=== PATIENT | female | born 1950 | race Caucasian/White ===

== ENCOUNTER 2022-01-03 06:30 | Outpatient (CLI) | payer OTHER ==
[~2022-01-03] VITALS: Ht 167.6 cm; Wt 74.8 kg
[~2022-01-03 06:30] MED LIST: ALBU108A14 IN; BACL20TA PO; BIMA0.01 EACHEYE; CHOL20009 PO; DIPH25CA66 PO; EPIN0.3I24 IJ; ESTR0.3T PO; FIBETAB PO; FLUT500M2 IN; GABA400C PO; LISI-283 PO; MONT10TA23 PO; MULT-1018 OR; OMEP20TA PO; SIMV-13 PO; SOLI5SUS PO; [UNRECOGNIZED DRUG - CODE] PO
[2022-01-03] MEDS ORDERED: VANCOMYCIN HCL 1000 MG VL ONE (06:32)
[2022-01-03] MEDS ORDERED: BUPIVACAINE 0.25% INJ 50ML VIAL ONE (06:33)
[2022-01-03] MEDS ORDERED: EPINEPHrine HCL 1 MG/1 ML AMP ONE (06:33)
[2022-01-03] MEDS ORDERED: THROMBIN (BOVINE) 5000 UNIT SOL VIAL ONE (06:34)
[2022-01-03] MEDS ORDERED: MINERAL OIL TOPICAL 10ml TOP ONE (06:34)
[2022-01-03] MEDS ORDERED: IPRATROPIUM BROM 0.5 MG/2.5ML INH SOL NEB ONE (07:15)
[2022-01-03] MEDS ORDERED: ALBUTEROL SULF 2.5 MG/0.5ML(0.5%) NEB SOLN NEB ONE (07:15)
== END 2022-01-03 07:12 | disposition home or self-care (01) ==
LOC: LAB 06:30 → EDSTATUS 07:00 → LAB 07:12
PROVIDERS: ATTEND Orthopaedic Surgery
DX: M48.062 Spinal stenosis, lumbar region with neurogenic claudication (principal); F17.200 Nicotine dependence, unspecified, uncomplicated; Z20.822 Contact with and (suspected) exposure to COVID-19
CPT/HCPCS: 86850; 86900; 86901; J0171; J3370; J7040; U0003; J3490

== ENCOUNTER 2022-02-28 06:08 | Inpatient (IN) | payer OTHER ==
[~2022-02-28] VITALS: Ht 167.6 cm; Wt 84.0 kg
[2022-02-28] MEDS ORDERED: ceFAZolin 1GM/50ML 100 ML IV ONE (06:25)
[2022-02-28] MEDS ORDERED: BUPIVACAINE W/ EPINEPH 0.5% INJ 50ML MDV IJ ONE (06:32)
[2022-02-28] MEDS ORDERED: VANCOMYCIN HCL 1000 MG VL ONE ×2 (06:33→11:58)
[2022-02-28] MEDS ORDERED: THROMBIN (BOVINE) 5000 UNIT SOL VIAL ONE (06:37)
[2022-02-28] MEDS ORDERED: FAMOTIDINE (10MG/ML) 2ML VL IV ONE (07:30)
[2022-02-28] MEDS ORDERED: TRANEXAMIC ACID 20 ML ONE (07:30)
[2022-02-28] MEDS ORDERED: ROCURONIUM 10MG/ML 10ML VIAL IV ONE (07:40)
[2022-02-28] MEDS ORDERED: SUCCINYLCHOLINE CHLORIDE 20 MG/ML 10ML VIAL IV ONE (07:40)
[2022-02-28] MEDS ORDERED: HYDROmorphone HCL 2 MG/ML VL/or syr ONE (07:42)
[2022-02-28] MEDS ORDERED: KETAMINE HCL 10 ML ONE (07:42)
[2022-02-28] MEDS ORDERED: fentaNYL CITRATE 10 ML ONE (07:42)
[2022-02-28] MEDS ORDERED: ONDANSETRON HCL 4 MG/2 ML VIAL ONE (07:43)
[2022-02-28] MEDS ORDERED: GLYCOPYRROLATE 0.2 MG/ML 1ML VIAL ONE (07:43)
[2022-02-28] MEDS ORDERED: HYDROCORTISONE SOD SUCC 100 MG/2ML INJ VIAL ONE (07:43)
[2022-02-28] MEDS ORDERED: DexAMETHasone SOD PHOS 10MG/1ML VIAL INJ ONE (07:43)
[2022-02-28] MEDS ORDERED: PROPOFOL 10 MG/ML 20 ML IV ONE (07:43)
[2022-02-28] MEDS ORDERED: PHENYLEPHRINE HCL 10 MG/ML VL ONE (07:43)
[2022-02-28] MEDS ORDERED: MIDAZOLAM HCL 2MG/2ML 2ml VIAL (1mg/ml) ONE (07:43)
[2022-02-28] MEDS ORDERED: SUGAMMADEX 200mg/2ml Vial (100MG/ML) IV ONE (11:26)
[2022-02-28] MEDS ORDERED: MEPERIDINE HCL (25 MG/ML) 1ML VIAL ONE (12:51)
[2022-02-28] MEDS ORDERED: MORPHINE SULFATE INJ 2 MG/ml SYRG IV PRN (13:00)
[2022-02-28] MEDS: LACTATED RINGER'S 1,000 ML IV SCH ×2 (13:00→23:00)
[2022-02-28] MEDS ORDERED: NITROGLYCERIN 0.4 MG SL TAB SL PRN (13:00)
[2022-02-28] MEDS ORDERED: ALBUTEROL SULF HFA 90MCG INH 200DOSE IN SCH (13:15)
[2022-02-28] MEDS ORDERED: ONDANSETRON HCL 4 MG/2 ML VIAL IV PRN (13:15)
[2022-02-28] MEDS ORDERED: HYDROmorphone HCL 2 MG/ML VL/or syr IV PRN (13:15)
[2022-02-28] MEDS ORDERED: ceFAZolin 1GM/50ML 50 ML IV SCH (14:00)
[2022-02-28] MEDS ORDERED: ALBUTEROL SULF 2.5 MG/0.5ML(0.5%) NEB SOLN NEB PRN (14:45)
[2022-02-28 16:58] VITALS: BP 136/67
[2022-02-28 17:08] VITALS: BP 136/67
[2022-02-28] MEDS: ceFAZolin 1GM/50ML 50 ML IV SCH (17:44)
[2022-02-28] MEDS: HYDROCORTISONE SOD SUCC 100 MG/2ML INJ VIAL IV SCH ×2 (19:09→22:17)
[2022-02-28] MEDS: oxyCODONE HCL 5MG TAB PO PRN (19:49)
[2022-02-28 20:00] VITALS: BP 136/67
[2022-02-28 21:02] VITALS: BP 136/67
[2022-02-28] MEDS: SENNA 8.6 MG TAB PO SCH (22:17)
[2022-02-28] MEDS: DOCUSATE SOD 100 MG CAP PO SCH (22:17)
[2022-03-01] MEDS ORDERED: LISINOPRIL 20 MG TAB PO ONE
[2022-03-01] MEDS ORDERED: METOPROLOL TARTRATE 25 MG TAB PO ONE
[2022-03-01] MEDS: ceFAZolin 1GM/50ML 50 ML IV SCH ×2 (01:38→09:30)
[2022-03-01] MEDS: oxyCODONE HCL 5MG TAB PO PRN ×2 (02:30→20:42)
[2022-03-01 05:00] VITALS: BP 155/68
[2022-03-01 05:36] LABS: Basophils # (auto) 0 10 ^3/uL (0-0.2); Eosinophils # (auto) 0 10 ^3/uL (0-0.8); Hematocrit 32.2 % (36.0-46.0); Hemoglobin 10.9 g/dL (12.2-16.2); Lymphocytes # (auto) 0.7 10 ^3/uL (0.4-5.4); Lymphocytes % (auto) 8.5 % (10.0-50.0); Mean Corpuscular Hemoglobin 29.3 pg (28.0-32.0); Mean Corpuscular Hgb Conc. 33.7 g/dL (32.0-36.0); Monocytes # (auto) 0.3 10 ^3/uL (0-1.3); Monocytes % (auto) 3.9 % (0.0-12.0); Neutrophils # (auto) 6.7 10 ^3/uL (1.6-8.6); Neutrophils % (auto) 87.6 % (37.0-80.0); Red Cell Distribution Width 13.5 % (11.8-14.3); White Blood Cell 7.7 10^3/uL (4.4-10.8)
[2022-03-01] MEDS: HYDROCORTISONE SOD SUCC 100 MG/2ML INJ VIAL IV SCH (07:07)
[2022-03-01 09:00] VITALS: BP 142/57
[2022-03-01] MEDS: POLYETHYLENE GLYCOL 17 GM PWDR PO SCH (10:48)
[2022-03-01] MEDS: DOCUSATE SOD 100 MG CAP PO SCH ×2 (10:48→22:50)
[2022-03-01] MEDS: SENNA 8.6 MG TAB PO SCH ×2 (10:48→22:50)
[2022-03-01] MEDS: LISINOPRIL 20 MG TAB PO SCH (10:57)
[2022-03-01] MEDS: METOPROLOL TARTRATE 25 MG TAB PO SCH ×2 (10:58→22:00)
[2022-03-01] MEDS: HYDROmorphone HCL 2 MG/ML VL/or syr IV PRN (11:13)
[2022-03-01] MEDS ORDERED: ceFAZolin 1GM/50ML 50 ML IV SCH (11:15)
[2022-03-01 13:00] VITALS: BP 127/62
[2022-03-01 17:11] VITALS: BP 118/45
[2022-03-01] MEDS: LACTATED RINGER'S 1,000 ML IV SCH ×2 (17:24→19:00)
[2022-03-01] MEDS ORDERED: OMEPRAZOLE 20MG/10ML ORAL SUSP PO SCH (22:00)
[2022-03-01] MEDS: OXYCODONE W/ ACETAMINOPHEN 5/325MG TABLET PO PRN (22:59)
[2022-03-02] MEDS: ONDANSETRON HCL 4 MG/2 ML VIAL IV PRN ×2 (01:40→09:37)
[2022-03-02] MEDS: oxyCODONE HCL 5MG TAB PO PRN ×3 (03:32→15:59)
[2022-03-02] MEDS: LACTATED RINGER'S 1,000 ML IV SCH ×3 (04:45→22:22)
[2022-03-02 05:00] VITALS: BP 137/57
[2022-03-02 06:31] LABS: Basophils # (auto) 0 10 ^3/uL (0-0.2); Basophils % (auto) 0.3 % (0.0-2.0); Eosinophils # (auto) 0 10 ^3/uL (0-0.8); Eosinophils % (auto) 0.2 % (0.0-7.0); Hematocrit 28.4 % (36.0-46.0); Hemoglobin 9.7 g/dL (12.2-16.2); Lymphocytes # (auto) 2.3 10 ^3/uL (0.4-5.4); Lymphocytes % (auto) 31.9 % (10.0-50.0); Mean Corpuscular Hemoglobin 29.6 pg (28.0-32.0); Mean Corpuscular Hgb Conc. 34.2 g/dL (32.0-36.0); Mean Corpuscular Volume 86.6 fL (80.0-100.0); Monocytes # (auto) 0.8 10 ^3/uL (0-1.3); Monocytes % (auto) 11.8 % (0.0-12.0); Neutrophils % (auto) 55.8 % (37.0-80.0); Red Blood Cells 3.28 10^6/uL (4.0-5.20); Red Cell Distribution Width 13.1 % (11.8-14.3); White Blood Cell 7.2 10^3/uL (4.4-10.8)
[2022-03-02] MEDS: OXYCODONE W/ ACETAMINOPHEN 5/325MG TABLET PO PRN (07:49)
[2022-03-02 08:00] VITALS: BP 133/64
[2022-03-02 09:00] VITALS: BP 160/61
[2022-03-02] MEDS: DOCUSATE SOD 100 MG CAP PO SCH ×2 (09:50→21:41)
[2022-03-02] MEDS: METOPROLOL TARTRATE 25 MG TAB PO SCH ×3 (09:51→22:23)
[2022-03-02] MEDS: SENNA 8.6 MG TAB PO SCH ×2 (09:51→21:43)
[2022-03-02] MEDS: POLYETHYLENE GLYCOL 17 GM PWDR PO SCH (09:51)
[2022-03-02] MEDS: LISINOPRIL 20 MG TAB PO SCH (09:52)
[2022-03-02] MEDS ORDERED: OMEPRAZOLE 20MG/10ML ORAL SUSP PO SCH (10:00)
[2022-03-02] MEDS ORDERED: ENOXAPARIN SOD 30 MG/0.3 ML SYRINGE SC ONE (11:45)
[2022-03-02 13:00] VITALS: BP 150/74
[2022-03-02] MEDS ORDERED: DIPH25CA66 PO (15:49)
[2022-03-02] MEDS ORDERED: OMEP20TA PO (15:49)
[2022-03-02] MEDS ORDERED: GABA100C9 PO (15:49)
[2022-03-02] MEDS ORDERED: ESTR0.3T PO (15:49)
[2022-03-02] MEDS ORDERED: MONT5CHW23 PO (15:49)
[2022-03-02] MEDS ORDERED: SIMV-13 PO (15:49)
[2022-03-02] MEDS ORDERED: BACL10TA PO (15:49)
[2022-03-02] MEDS ORDERED: LISI-285 PO (15:49)
[2022-03-02] MEDS ORDERED: SOLI5SUS PO (15:49)
[2022-03-02 17:00] VITALS: BP_SYST 103; BP_SYST 146; BP_DIAS 54; BP_DIAS 67
[2022-03-02] MEDS: PANTOPRAZOLE 40 MG TAB PO SCH (17:30)
[2022-03-02] MEDS: BACLOFEN 10 MG TAB PO SCH (21:41)
[2022-03-02 22:00] VITALS: BP 166/68
[2022-03-03 05:00] VITALS: BP_SYST 125; BP_SYST 145; BP_DIAS 56; BP_DIAS 66
[2022-03-03] MEDS: OXYCODONE W/ ACETAMINOPHEN 5/325MG TABLET PO PRN (05:32)
[2022-03-03 06:17] LABS: Basophils # (auto) 0 10 ^3/uL (0-0.2); Basophils % (auto) 0.4 % (0.0-2.0); Eosinophils # (auto) 0 10 ^3/uL (0-0.8); Eosinophils % (auto) 0.7 % (0.0-7.0); Hematocrit 30.1 % (36.0-46.0); Hemoglobin 10.3 g/dL (12.2-16.2); Lymphocytes # (auto) 2.3 10 ^3/uL (0.4-5.4); Lymphocytes % (auto) 36.5 % (10.0-50.0); Mean Corpuscular Hemoglobin 29.9 pg (28.0-32.0); Mean Corpuscular Hgb Conc. 34.4 g/dL (32.0-36.0); Mean Corpuscular Volume 87.1 fL (80.0-100.0); Monocytes # (auto) 0.7 10 ^3/uL (0-1.3); Monocytes % (auto) 12.1 % (0.0-12.0); Neutrophils # (auto) 3.1 10 ^3/uL (1.6-8.6); Neutrophils % (auto) 50.3 % (37.0-80.0); Nucleated Red Blood Cells % 0.1 %; Red Blood Cells 3.46 10^6/uL (4.0-5.20); Red Cell Distribution Width 13.3 % (11.8-14.3); White Blood Cell 6.2 10^3/uL (4.4-10.8)
[2022-03-03 09:00] VITALS: BP 127/49
[2022-03-03] MEDS: METOPROLOL TARTRATE 25 MG TAB PO SCH ×2 (09:59→21:31)
[2022-03-03] MEDS: DOCUSATE SOD 100 MG CAP PO SCH ×2 (09:59→21:31)
[2022-03-03] MEDS: SENNA 8.6 MG TAB PO SCH ×2 (10:00→21:30)
[2022-03-03] MEDS: LISINOPRIL 20 MG TAB PO SCH (10:00)
[2022-03-03] MEDS: PANTOPRAZOLE 40 MG TAB PO SCH (10:00)
[2022-03-03] MEDS: LACTATED RINGER'S 1,000 ML IV SCH ×2 (10:00→19:43)
[2022-03-03] MEDS: POLYETHYLENE GLYCOL 17 GM PWDR PO SCH (10:00)
[2022-03-03 10:39] LABS: Albumin 2.6 g/dL (3.4-5.0); Potassium 3.4 mmol/L (3.5-5.1)
[2022-03-03 10:42] LABS: BUN/Creatinine Ratio 19.6; Bilirubin, Total 0.5 mg/dL (0.2-1.0); Total Protein 5.1 g/dL (6.4-8.2)
[2022-03-03] MEDS ORDERED: hydrALAZINE HCL 20 MG/ML VL IV PRN (11:45)
[2022-03-03] MEDS ORDERED: ceFAZolin 1GM/50ML 100 ML IV ONE (11:50)
[2022-03-03 12:04] LABS: INR 0.96 (0.9-1.15)
[2022-03-03] MEDS ORDERED: fentaNYL CITRATE 100 MCG/2 ML VL ONE ×2 (12:23→13:48)
[2022-03-03] MEDS ORDERED: ROCURONIUM 10MG/ML 10ML VIAL IV ONE (12:24)
[2022-03-03] MEDS ORDERED: MIDAZOLAM HCL 2MG/2ML 2ml VIAL (1mg/ml) ONE (12:24)
[2022-03-03] MEDS ORDERED: ONDANSETRON HCL 4 MG/2 ML VIAL ONE (12:25)
[2022-03-03] MEDS ORDERED: LIDOCAINE 2% (LOCAL ANESTH.) PF 5ml SDV ONE (12:25)
[2022-03-03] MEDS ORDERED: PROPOFOL 10 MG/ML 20 ML IV ONE (12:26)
[2022-03-03] MEDS ORDERED: HYDROmorphone HCL 2 MG/ML VL/or syr IV PRN ×2 (14:15)
[2022-03-03] MEDS ORDERED: ONDANSETRON HCL 4 MG/2 ML VIAL IV PRN (14:15)
[2022-03-03] MEDS ORDERED: NEOSTIGMINE 1 MG/ML INJ (10mg/10ML VIAL) ONE (14:34)
[2022-03-03] MEDS ORDERED: GLYCOPYRROLATE 0.2 MG/ML 1ML VIAL ONE (14:34)
[2022-03-03] MEDS ORDERED: ePHEDrine SULFATE 50 MG/ML AMP ONE (14:45)
[2022-03-03 17:00] VITALS: BP 143/62
[2022-03-03] MEDS: HYDROmorphone HCL 2 MG/ML VL/or syr IV PRN ×2 (17:22→21:32)
[2022-03-03] MEDS: ceFAZolin 1GM/50ML 50 ML IV SCH (21:29)
[2022-03-03] MEDS: BACLOFEN 10 MG TAB PO SCH (21:31)
[2022-03-03 21:43] VITALS: BP 133/15
[2022-03-03] MEDS: oxyCODONE HCL 5MG TAB PO PRN (22:54)
[2022-03-04] MEDS: HYDROmorphone HCL 2 MG/ML VL/or syr IV PRN ×2 (02:14→13:22)
[2022-03-04] MEDS: OXYCODONE W/ ACETAMINOPHEN 5/325MG TABLET PO PRN (03:19)
[2022-03-04 05:00] VITALS: BP 124/62
[2022-03-04] MEDS: oxyCODONE HCL 5MG TAB PO PRN ×3 (05:04→15:03)
[2022-03-04] MEDS: ceFAZolin 1GM/50ML 50 ML IV SCH ×2 (05:05→15:03)
[2022-03-04 05:32] LABS: Basophils # (auto) 0 10 ^3/uL (0-0.2); Basophils % (auto) 0.4 % (0.0-2.0); Eosinophils # (auto) 0.1 10 ^3/uL (0-0.8); Eosinophils % (auto) 1.1 % (0.0-7.0); Hematocrit 30.5 % (36.0-46.0); Hemoglobin 10.3 g/dL (12.2-16.2); Lymphocytes # (auto) 2.3 10 ^3/uL (0.4-5.4); Lymphocytes % (auto) 29.4 % (10.0-50.0); Mean Corpuscular Hemoglobin 29.7 pg (28.0-32.0); Mean Corpuscular Hgb Conc. 33.9 g/dL (32.0-36.0); Mean Corpuscular Volume 87.5 fL (80.0-100.0); Monocytes # (auto) 0.9 10 ^3/uL (0-1.3); Monocytes % (auto) 11.1 % (0.0-12.0); Neutrophils # (auto) 4.5 10 ^3/uL (1.6-8.6); Nucleated Red Blood Cells % 0.1 %; Red Blood Cells 3.48 10^6/uL (4.0-5.20); Red Cell Distribution Width 12.9 % (11.8-14.3); White Blood Cell 7.8 10^3/uL (4.4-10.8)
[2022-03-04 05:52] LABS: Potassium 3.3 mmol/L (3.5-5.1)
[2022-03-04 05:56] LABS: BUN/Creatinine Ratio 23.4; Calcium 7.9 mg/dL (8.5-10.1)
[2022-03-04] MEDS: LACTATED RINGER'S 1,000 ML IV SCH ×2 (06:26→17:00)
[2022-03-04 09:00] VITALS: BP 141/61
[2022-03-04] MEDS: POLYETHYLENE GLYCOL 17 GM PWDR PO SCH (10:02)
[2022-03-04] MEDS: LISINOPRIL 20 MG TAB PO SCH (10:02)
[2022-03-04] MEDS: SENNA 8.6 MG TAB PO SCH ×2 (10:02→23:13)
[2022-03-04] MEDS: DOCUSATE SOD 100 MG CAP PO SCH ×2 (10:03→23:11)
[2022-03-04] MEDS: METOPROLOL TARTRATE 25 MG TAB PO SCH ×2 (10:03→23:12)
[2022-03-04] MEDS: PANTOPRAZOLE 40 MG TAB PO SCH (10:03)
[2022-03-04 13:00] VITALS: BP 134/56
[2022-03-04 17:00] VITALS: BP 125/58
[2022-03-04 22:00] VITALS: BP 100/50
[2022-03-04] MEDS: BACLOFEN 10 MG TAB PO SCH (23:11)
[2022-03-05] MEDS: ONDANSETRON HCL 4 MG/2 ML VIAL IV PRN (00:45)
[2022-03-05 05:00] VITALS: BP 139/65
[2022-03-05 08:00] VITALS: BP 155/53
[2022-03-05] MEDS: POLYETHYLENE GLYCOL 17 GM PWDR PO SCH (09:45)
[2022-03-05] MEDS: SENNA 8.6 MG TAB PO SCH ×2 (09:45→22:00)
[2022-03-05] MEDS: DOCUSATE SOD 100 MG CAP PO SCH ×2 (09:45→22:00)
[2022-03-05] MEDS: PANTOPRAZOLE 40 MG TAB PO SCH (09:46)
[2022-03-05] MEDS: LISINOPRIL 20 MG TAB PO SCH (09:47)
[2022-03-05] MEDS: METOPROLOL TARTRATE 25 MG TAB PO SCH ×2 (09:47→22:45)
[2022-03-05 12:00] VITALS: BP 145/58
[2022-03-05 16:00] VITALS: BP 114/64
[2022-03-05 22:00] VITALS: BP 133/53
[2022-03-05] MEDS: POTASSIUM CHL 20 Meq TABLET PO SCH (22:44)
[2022-03-05] MEDS: BACLOFEN 10 MG TAB PO SCH (22:45)
[2022-03-05] MEDS: OXYCODONE W/ ACETAMINOPHEN 5/325MG TABLET PO PRN (23:12)
[2022-03-06 05:00] VITALS: BP 141/51
[2022-03-06 05:27] LABS: Basophils # (auto) 0 10 ^3/uL (0-0.2); Basophils % (auto) 0.5 % (0.0-2.0); Eosinophils # (auto) 0.2 10 ^3/uL (0-0.8); Eosinophils % (auto) 3.3 % (0.0-7.0); Hematocrit 28.3 % (36.0-46.0); Hemoglobin 9.6 g/dL (12.2-16.2); Lymphocytes # (auto) 2.6 10 ^3/uL (0.4-5.4); Lymphocytes % (auto) 42.3 % (10.0-50.0); Mean Corpuscular Hemoglobin 29.4 pg (28.0-32.0); Mean Corpuscular Hgb Conc. 33.9 g/dL (32.0-36.0); Mean Corpuscular Volume 86.6 fL (80.0-100.0); Monocytes # (auto) 0.8 10 ^3/uL (0-1.3); Monocytes % (auto) 13.5 % (0.0-12.0); Neutrophils # (auto) 2.5 10 ^3/uL (1.6-8.6); Neutrophils % (auto) 40.4 % (37.0-80.0); Nucleated Red Blood Cells % 0.1 %; Red Blood Cells 3.26 10^6/uL (4.0-5.20); Red Cell Distribution Width 12.7 % (11.8-14.3); White Blood Cell 6.1 10^3/uL (4.4-10.8)
[2022-03-06 05:42] LABS: Potassium 4.3 mmol/L (3.5-5.1)
[2022-03-06 05:44] LABS: BUN/Creatinine Ratio 20.3
[2022-03-06 08:00] VITALS: BP 118/44
[2022-03-06] MEDS: POTASSIUM CHL 20 Meq TABLET PO SCH ×2 (10:00→22:00)
[2022-03-06] MEDS: LISINOPRIL 20 MG TAB PO SCH (10:00)
[2022-03-06] MEDS: POLYETHYLENE GLYCOL 17 GM PWDR PO SCH (10:00)
[2022-03-06] MEDS: PANTOPRAZOLE 40 MG TAB PO SCH (10:00)
[2022-03-06] MEDS: METOPROLOL TARTRATE 25 MG TAB PO SCH ×2 (10:00→22:52)
[2022-03-06] MEDS: SENNA 8.6 MG TAB PO SCH ×2 (10:00→22:00)
[2022-03-06] MEDS: DOCUSATE SOD 100 MG CAP PO SCH ×2 (10:00→22:00)
[2022-03-06 12:00] VITALS: BP 140/51
[2022-03-06] MEDS: OXYCODONE W/ ACETAMINOPHEN 5/325MG TABLET PO PRN (14:37)
[2022-03-06 16:00] VITALS: BP 137/57
[2022-03-06] MEDS: BACLOFEN 10 MG TAB PO SCH (22:51)
[2022-03-07] MEDS: OXYCODONE W/ ACETAMINOPHEN 5/325MG TABLET PO PRN ×2 (03:43→17:13)
[2022-03-07 05:09] LABS: Basophils # (auto) 0 10 ^3/uL (0-0.2); Basophils % (auto) 0.7 % (0.0-2.0); Eosinophils # (auto) 0.2 10 ^3/uL (0-0.8); Eosinophils % (auto) 3.2 % (0.0-7.0); Hematocrit 31.8 % (36.0-46.0); Hemoglobin 10.7 g/dL (12.2-16.2); Lymphocytes # (auto) 2.4 10 ^3/uL (0.4-5.4); Lymphocytes % (auto) 34.1 % (10.0-50.0); Mean Corpuscular Hemoglobin 29.5 pg (28.0-32.0); Mean Corpuscular Hgb Conc. 33.7 g/dL (32.0-36.0); Mean Corpuscular Volume 87.6 fL (80.0-100.0); Monocytes # (auto) 0.7 10 ^3/uL (0-1.3); Monocytes % (auto) 10.5 % (0.0-12.0); Neutrophils # (auto) 3.6 10 ^3/uL (1.6-8.6); Neutrophils % (auto) 51.5 % (37.0-80.0); Red Blood Cells 3.63 10^6/uL (4.0-5.20); Red Cell Distribution Width 13.3 % (11.8-14.3)
[2022-03-07 05:32] LABS: Potassium 4.3 mmol/L (3.5-5.1)
[2022-03-07 05:36] LABS: BUN/Creatinine Ratio 17.6; Calcium 8.4 mg/dL (8.5-10.1)
[2022-03-07 05:42] VITALS: BP 147/58
[2022-03-07 09:00] VITALS: BP 153/58
[2022-03-07] MEDS: POLYETHYLENE GLYCOL 17 GM PWDR PO SCH ×2 (09:58→10:00)
[2022-03-07] MEDS: SENNA 8.6 MG TAB PO SCH ×2 (09:58→22:00)
[2022-03-07] MEDS: DOCUSATE SOD 100 MG CAP PO SCH ×2 (09:58→23:42)
[2022-03-07] MEDS: LISINOPRIL 20 MG TAB PO SCH (09:58)
[2022-03-07] MEDS: PANTOPRAZOLE 40 MG TAB PO SCH (09:59)
[2022-03-07] MEDS: METOPROLOL TARTRATE 25 MG TAB PO SCH ×2 (09:59→23:44)
[2022-03-07] MEDS: POTASSIUM CHL 20 Meq TABLET PO SCH ×2 (09:59→23:43)
[2022-03-07 12:45] VITALS: BP 147/67
[2022-03-07 17:00] VITALS: BP 164/63
[2022-03-07 22:00] VITALS: BP_SYST 103; BP_SYST 146; BP_DIAS 63; BP_DIAS 68
[2022-03-07] MEDS: BACLOFEN 10 MG TAB PO SCH (23:43)
[2022-03-08 05:00] VITALS: BP 136/49
[2022-03-08 05:55] LABS: Basophils # (auto) 0 10 ^3/uL (0-0.2); Basophils % (auto) 0.8 % (0.0-2.0); Eosinophils # (auto) 0.1 10 ^3/uL (0-0.8); Eosinophils % (auto) 1.7 % (0.0-7.0); Hematocrit 29.4 % (36.0-46.0); Lymphocytes # (auto) 2.6 10 ^3/uL (0.4-5.4); Lymphocytes % (auto) 40.4 % (10.0-50.0); Mean Corpuscular Hemoglobin 29.7 pg (28.0-32.0); Mean Corpuscular Hgb Conc. 34.1 g/dL (32.0-36.0); Mean Corpuscular Volume 87.1 fL (80.0-100.0); Monocytes # (auto) 0.9 10 ^3/uL (0-1.3); Monocytes % (auto) 13.5 % (0.0-12.0); Neutrophils # (auto) 2.8 10 ^3/uL (1.6-8.6); Neutrophils % (auto) 43.6 % (37.0-80.0); Red Blood Cells 3.37 10^6/uL (4.0-5.20); White Blood Cell 6.4 10^3/uL (4.4-10.8)
[2022-03-08 06:02] LABS: BUN/Creatinine Ratio 15.5; Calcium 8.5 mg/dL (8.5-10.1); Potassium 4.5 mmol/L (3.5-5.1)
[2022-03-08 08:00] VITALS: BP 145/68
[2022-03-08] MEDS: SENNA 8.6 MG TAB PO SCH ×2 (10:00→23:22)
[2022-03-08] MEDS: POLYETHYLENE GLYCOL 17 GM PWDR PO SCH (10:00)
[2022-03-08] MEDS: DOCUSATE SOD 100 MG CAP PO SCH ×2 (11:25→23:21)
[2022-03-08] MEDS: PANTOPRAZOLE 40 MG TAB PO SCH (11:26)
[2022-03-08] MEDS: LISINOPRIL 20 MG TAB PO SCH (11:26)
[2022-03-08] MEDS: METOPROLOL TARTRATE 25 MG TAB PO SCH ×2 (11:27→23:23)
[2022-03-08] MEDS: POTASSIUM CHL 20 Meq TABLET PO SCH ×2 (11:27→23:21)
[2022-03-08 12:00] VITALS: BP 121/93
[2022-03-08 17:00] VITALS: BP 109/46
[2022-03-08 22:00] VITALS: BP 162/68
[2022-03-08] MEDS: BACLOFEN 10 MG TAB PO SCH (23:22)
[2022-03-09] MEDS: OXYCODONE W/ ACETAMINOPHEN 5/325MG TABLET PO PRN (03:57)
[2022-03-09 05:00] VITALS: BP 126/50
[2022-03-09 07:08] LABS: BUN/Creatinine Ratio 15.7; Calcium 7.9 mg/dL (8.5-10.1)
[2022-03-09 08:00] VITALS: BP 127/61
[2022-03-09] MEDS: DOCUSATE SOD 100 MG CAP PO SCH (09:18)
[2022-03-09] MEDS: POLYETHYLENE GLYCOL 17 GM PWDR PO SCH (09:19)
[2022-03-09] MEDS: POTASSIUM CHL 20 Meq TABLET PO SCH (09:19)
[2022-03-09] MEDS: PANTOPRAZOLE 40 MG TAB PO SCH (09:19)
[2022-03-09] MEDS: SENNA 8.6 MG TAB PO SCH (09:19)
[2022-03-09] MEDS: LISINOPRIL 20 MG TAB PO SCH (09:20)
[2022-03-09] MEDS: METOPROLOL TARTRATE 25 MG TAB PO SCH (09:21)
[2022-03-09 11:46] VITALS: BP 119/63
[2022-03-09 12:00] VITALS: BP 110/57
[2022-03-09 14:18] VITALS: BP 110/57
== END 2022-03-09 15:08 | disposition home or self-care (01) | DRG 460 ==
LOC: SUR 06:08 → OVERFLOW 13:04 → TELE 13:41 → TELE-EAST 16:48 → EAST 03-02 12:46
PROVIDERS: ADMIT Physician Assistant; ATTEND Orthopaedic Surgery
PROC: 01NB0ZZ Release Lumbar Nerve, Open Approach (ICD-10-PCS; 2022-02-28)
PROC: 00NY0ZZ Release Lumbar Spinal Cord, Open Approach (ICD-10-PCS; 2022-02-28)
PROC: 00QT0ZZ Repair Spinal Meninges, Open Approach (ICD-10-PCS; 2022-02-28)
PROC: 4A11X4G Monitoring of Peripheral Nervous Electrical Activity, Intraoperative, External Approach (ICD-10-PCS; 2022-02-28)
PROC: 0SG1071 Fusion of 2 or more Lumbar Vertebral Joints with Autologous Tissue Substitute, Posterior Approach, Posterior Column, Open Approach (ICD-10-PCS; principal; 2022-02-28 08:02)
PROC: 00UT0KZ Supplement Spinal Meninges with Nonautologous Tissue Substitute, Open Approach (ICD-10-PCS; 2022-03-03)
PROC: 0SB20ZZ Excision of Lumbar Vertebral Disc, Open Approach (ICD-10-PCS; 2022-03-03)
DX: M48.062 Spinal stenosis, lumbar region with neurogenic claudication (principal); G97.41 Accidental puncture or laceration of dura during a procedure; Y83.8 Other surgical procedures as the cause of abnormal reaction of the patient, or of later complication, without mention of misadventure at the time of the procedure; Y92.238 Other place in hospital as the place of occurrence of the external cause; Z20.822 Contact with and (suspected) exposure to COVID-19; T81.89XA Other complications of procedures, not elsewhere classified, initial encounter
CPT/HCPCS: 36415; 72100; 76000; 80048; 80053; 85025; 85610; 86850; 86900; 86901; 93971; 94640; 97110; 97116; 97163; 97530; A4565; G0378; J0330; J0690; J1100; J2001; J2250; J2405; J2704; J3490